=== PATIENT | male | born 1950 | race Caucasian/White ===

== ENCOUNTER 2017-05-26 12:16 | Emergency (ER) | payer MEDICARE, OTHER ==
[~2017-05-26] VITALS: Ht 170.2 cm; Wt 94.7 kg
[~2017-05-26 12:16] MED LIST: FISH1000 PO; GLUC500C56 PO; GLUCTAB PO; OXYC-360 PO; ROSI1TAB25 PO; TAB-TAB PO; VITA50TA PO; ZIAC5TAB PO; ZOCO40TA PO
[2017-05-26 12:22] VITALS: BP 166/72; PULSE 62; RESP 18; TEMP 98.1; O2SAT 97
[2017-05-26] MEDS ORDERED: LIDOCAINE HCL 1% 20 ML VIAL INFIL ONE (12:30)
[2017-05-26] MEDS ORDERED: OMEGCAP PO (12:40)
[2017-05-26] MEDS ORDERED: GLUC100017 PO (12:40)
[2017-05-26] MEDS ORDERED: METF1000 PO (12:40)
[2017-05-26] MEDS ORDERED: B-1250TA PO (12:40)
[2017-05-26] MEDS ORDERED: SIMV20TA PO (12:40)
[2017-05-26] MEDS ORDERED: MULT1TAB46 PO (12:40)
[2017-05-26] MEDS ORDERED: ceFAZolin 2 GM PREMIX 50 ML IV ONE (12:45)
--- NOTE | 2017-05-26 12:50 | PD ---
HPI . Laceration Chief Complaint: Laceration/Skin Injury Time Seen by Provider: 12:29 Travel History International Travel<30 days: No Contact w/Intl Traveler<30days: No Traveled to known affect area: No History of Present Illness HPI This patient presents with a laceration to his right middle finger. He cut it with a machine zipper trimmer. Tetanus is up-to-date. Bleeding has been controlled with pressure. He denies pain. PFSH Past Medical History Blood Disorders: No Cancer: No Cardiovascular Problems: Yes High Cholesterol: Yes Diabetes: Yes (type 2 ) Endocrine: No Genitourinary: No Hypertension: Yes Immune Disorder: No Musculoskeletal: No Neurologic: No Psychiatric: Yes ([employer] 1983) Reproductive: No Respiratory: No Social History Alcohol Use: No Tobacco Use: No Substance Use: No Allergies-Medications (Allergen,Severity, Reaction): Coded Allergies: No Known Allergies (Verified , 05/26/17) Reported Meds & Prescriptions Reported Meds & Active Scripts Active Reported Glucosamine (Glucosamine Sulfate) 1,000 Mg Cap 1,000 Mg PO DAILY Metformin (Metformin HCl) 1,000 Mg Tab 1,000 Mg PO DAILY With a meal Multi Vitamin Daily (Multiple Vitamin) 1 Tab Tab 1 Mg PO DAILY [place]-3 Fish Oil/Vitamin (Fish Oil-Cholecalciferol) 1,000-1,000 Mg Cap 1 Cap PO DAILY B-1 (Thiamine HCl) 250 Mg Tab 50 Mg PO DAILY Simvastatin 20 Mg Tab 20 Mg PO DAILY Review of Systems Except as stated in HPI: all other systems reviewed are Neg Skin: Positive Other (laceration) Physical Exam Narrative GENERAL: Awake and alert and in no acute distress. SKIN: Warm and dry. He has a laceration on the distal aspect of the left middle finger. Bleeding is currently controlled. There is no gross deformity. HEAD: Atraumatic. Normocephalic. EYES: Pupils equal and round. NECK: Trachea midline. CARDIOVASCULAR: Regular rate and rhythm. RESPIRATORY: No accessory muscle use. MUSCULOSKELETAL: No obvious deformities. No edema. NEUROLOGICAL: Awake and alert. No obvious cranial nerve deficits. Motor grossly within normal limits. Normal speech. PSYCHIATRIC: Appropriate mood and affect; insight and judgment normal. Data Data Last Documented VS Vital Signs Date Time Temp Pulse Resp B/P (MAP) Pulse Ox O2 Delivery O2 Flow Rate FiO2 05/26/17 12:22 98.1 62 18 166/72 (103) 97 Orders Orders Finger ([id number]) (05/26/17 12:30) Lidocaine 1% Inj (Xylocaine 1% Inj) (05/26/17 12:30) Cefazolin 2 Gm Premix (Ancef 2 Gm Premix (05/26/17 12:45) MDM Medical Decision Making Medical Screen Exam Complete: Yes Emergency Medical Condition: Yes Differential Diagnosis Differential diagnosis includes but is not limited to skin laceration, muscular laceration, tendon laceration, neurovascular laceration. Narrative Course This patient presents with a laceration on his right middle finger. It was cut with a machine zipper trimmer. X-ray is pending to rule out fracture. I plan to do a digital block followed by repair. I have ordered Ancef. His tetanus is up-to- date. Procedures Procedure Narrative DIGITAL BLOCK: Following verbal consent, identification of the correct patient and identification of correct site, the skin was prepped with alcohol. A digital block was done using a total of 10 cc of 1% plain lidocaine. The patient tolerated procedure well without complication. Adequate anesthesia was obtained. LACERATION LOCATION: Right middle finger LENGTH: 2 cm NUMBER OF STITCHES/LISA: 4 REPAIR: The area of the laceration was prepped with Betadine and sterilely draped. The wound was copiously irrigated and explored without evidence of foreign body, tendon injury or neurovascular injury. The wound was closed using 4-0 Prolene sutures. This was a single layer repair. A sterile dressing was applied. The patient was advised to keep the dressing clean and dry. Patient tolerated the procedure well. Diagnosis Primary Impression: Laceration of finger of right hand Qualified Codes: S61.212A - Laceration without foreign body of right middle finger without damage to nail, initial encounter Patient Instructions: Finger Laceration (GEN), General Instructions Additional Instructions: Clean the wound twice daily with soap and water. Apply a thin layer of Neosporin ointment after you wash it. See your doctor in 7 days for suture removal. Seek care sooner for redness, drainage, warmth, unusual pain. Disposition: 01 DISCHARGE HOME Condition: Stable Terese Guallpa MD May 26, 2017 12:50
--- NOTE | 2017-05-26 13:40 | RADRPT ---
EXAM DATE/TIME: 05/26/2017 12:53 [facility] COMPARISON: No previous studies available for comparison. INDICATIONS : Right hand 3rd digit laceration, cut finger on hedgetrimmer today. MEDICAL HISTORY : None. SURGICAL HISTORY : None. ENCOUNTER: Initial ACUITY: 1 day PAIN SCORE: 0/10 LOCATION: Right distal 3rd digit FINDINGS: Examination of the third digit of the right hand demonstrates no evidence of fracture or dislocation. No radiopaque foreign bodies are seen. The soft tissues are intact. Special attention is directed to the 3rd digit DIP joint; the bony structures are grossly intact CONCLUSION: No evidence of fracture or radiopaque foreign body. Samir Espino MD on May 26, 2017 at 13:37 Board Certified Radiologist. This report was verified electronically.
== END 2017-05-26 14:29 | disposition home or self-care (01) ==
LOC: PHEFT 12:16
DX: S61.212A Laceration without foreign body of right middle finger without damage to nail, initial encounter (principal); E11.9 Type 2 diabetes mellitus without complications; W26.8XXA Contact with other sharp object(s), not elsewhere classified, initial encounter; Z79.84 Long term (current) use of oral hypoglycemic drugs
CPT/HCPCS: 12001; 73140; 96365; 99284; J0690